=== PATIENT | male | born 1955 | race Caucasian/White ===

== ENCOUNTER 2023-06-17 14:54 | Outpatient (CLI) | payer OTHER ==
[~2023-06-17 14:54] MED LIST: Iopamidol 300 61% 100 ML VIAL FS ONE
== END 2023-06-17 14:55 | disposition home or self-care (01) ==
LOC: CSHCT 14:54
PROVIDERS: ATTEND Family Medicine
DX: R31.0 Gross hematuria (principal); N13.2 Hydronephrosis with renal and ureteral calculous obstruction
CPT/HCPCS: 74178; Q9967